=== PATIENT | male | born 1985 | race Caucasian/White ===

== ENCOUNTER 2020-07-14 18:10 | Emergency (ER) | payer OTHER ==
[~2020-07-14] VITALS: Ht 177.8 cm; Wt 75.7 kg
[2020-07-14] MEDS ORDERED: [UNRECOGNIZED DRUG - OTHER] (19:02)
== END 2020-07-14 23:25 | disposition home or self-care (01) ==
LOC: ER 18:10
DX: R42 Dizziness and giddiness (principal)

== ENCOUNTER 2023-03-06 08:10 | Emergency (ER) | payer OTHER ==
[~2023-03-06] VITALS: Ht 177.8 cm; Wt 77.6 kg
[~2023-03-06 08:10] MED LIST: [UNRECOGNIZED DRUG - OTHER]
== END 2023-03-06 12:30 | disposition home or self-care (01) ==
LOC: ER 08:10
DX: E86.0 Dehydration (principal); R19.7 Diarrhea, unspecified